=== PATIENT | female | born 1935 ===

== ENCOUNTER 2022-12-08 07:00 | Emergency (ER) | payer MEDICARE, OTHER, SELFPAY ==
[2022-12-08] VITALS (19 sets, daily range): BP systolic 136–152; BP diastolic 63–75; PULSE 60–67; RESP 14–28; TEMP 36.3; O2SAT 91–100; BMI 20.5
--- NOTE | 2022-12-08 07:14 | DI.RAD.S_ITS ---
PROCEDURE: XR CHEST 1V INDICATIONS: short of breath TECHNIQUE: One view of the chest was acquired. COMPARISON: None. FINDINGS: Surgical changes and devices: Pacemaker. Lungs and pleura: Mild increased vascularity.. No pleural effusions or pneumothorax. Mediastinum: Mediastinal contours appear normal. Heart size is heart is enlarged. Bones and chest wall: No suspicious bony lesions. Overlying soft tissues appear unremarkable. IMPRESSION: Cardiomegaly with mild increased vascularity suggestive of edema. Dictated by: Saba Khan M.D. on 12/08/2022 at 8:05 Approved by: Saba Khan M.D. on 12/08/2022 at 8:06
[2022-12-08 07:36] LABS: Add Manual Diff / Slide Review NO; Basophils Absolute Auto 100 /uL (0-100); Basophils Percent Auto 0.8 % (0-2); Eosinophils Absolute Auto 200 /uL (0-450); Eosinophils Percent Auto 2.7 % (2-4); Hematocrit 36.2 % (36-46); Hemoglobin 11.8 g/dL (12.0-16.0); Lymphocytes Absolute Auto 800 /uL (1100-4500); Lymphocytes Percent Auto 9.6 % (25-40); Mean Corpuscular HGB Conc 32.7 % (30-36); Mean Corpuscular Hemoglobin 29.2 PG (26-34); Mean Corpuscular Volume 89.3 fL (80-100); Monocytes Absolute Auto 800 /uL (0-900); Monocytes Percent Auto 9.2 % (3-14); Neutrophils Absolute Auto 6800 /uL (1500-7000); Neutrophils Percent Auto 77.7 % (50-75); Platelet Count 318 X10^3/uL (150-400); Red Blood Cell Count 4.06 X10^6/uL (4.0-5.2); Red Cell Distribution Width 20.2 % (11.6-14.8); White Blood Cell Count 8.8 X10^3/uL (4.5-11.0)
[2022-12-08 07:37] LABS: INR 1.1 (0.9-1.3); Prothrombin Time 12.6 SECONDS (10.1-12.7)
[2022-12-08 07:40] LABS: Lactate (Lactic Acid) 1.6 mmol/L (0.7-2.1); PTT Partial Thromboplastin Tim 33 SECONDS (26-36)
[2022-12-08 07:41] LABS: Alanine Aminotransferase 23 IU/L (<35); Albumin 3.5 g/dL (3.5-5.0); Albumin Globulin Ratio 1.1 (1.0-2.8); Alkaline Phosphatase 82 U/L (38-126); Aspartate Aminotransferase 36 IU/L (14-36); Bilirubin Total 0.8 mg/dL (0.2-1.3); Blood Urea Nitrogen 30 mg/dL (7-17); Calcium 9.2 mg/dL (8.4-10.2); Carbon Dioxide 29 mmol/L (22-32); Chloride 104 mmol/L (98-107); Creatine Kinase 60 U/L (30-135); Estimated Glomerular Filt Rate > 60 mL/min (>60); Globulin 3.2 g/dL (1.7-4.1); Glucose 130 mg/dL (80-110); HEMOLYSIS 50 (0-50); Lipase 101 U/L (23-300); Potassium 4.2 mmol/L (3.4-5.1); Sodium 140 mmol/L (137-145); Total Protein 6.7 g/dL (6.3-8.2)
[2022-12-08 07:50] LABS: NT-proBNP (BNP-Adult 18+) 12300 pg/mL (<450)
[2022-12-08 07:53] LABS: Troponin I 0.028 ng/mL (0.01-0.034)
--- NOTE | 2022-12-08 08:00 | ED.SOB ---
HPI - SOB/Dyspnea General Chief Complaint: Shortness of Breath/Dyspnea Stated Complaint: SOB. Time Seen by Provider: 12/08/22 07:14 Source: patient and EMS Mode of arrival: EMS Limitations: no limitations History of Present Illness HPI Narrative: Patient is an 87-year-old female with history of pacemaker congestive heart failure, presents today with increasing shortness of breath. It sounds like primary increase Lasix to 2 tablets once a day and then she was back down to 1 once daily. She also has chronic pain in her hip and is taking oxycodone. She took oxycodone yesterday and slept for most of the day. Daughter came to check on her this morning noticed that she was having some difficulty breathing. EMS arrived she was never hypoxic but did sound audibly course. They are able to culture she does not require oxygen she is awake alert oriented. She denies any chest pain. She feels like she is a chronic cough from postnasal drip cough does not seem any worse today. She denies any fever. Denies abdominal pain nausea or vomiting. She does have some mild lower extremity edema. Visiting here from out of town. Niece at bedside she reports that for the last 2 days she is really been unable to get out of bed due to increasing pain in her right hip. She is seen in follow-up by Orthopedics at [facility] in [place]. She reports that she is supposed to have hip revision December 18 for failing hardware. She is been doing okay until the last 2 days when the pain has gotten significantly worse so much so that she can not get up. She denies any fever. Related Data Allergies Allergy/AdvReac Type Severity Reaction Status Date / Time ibuprofen AdvReac Was told Verified 12/08/22 08:55 not to take Review of Systems Review of Systems ROS Unobtainable: All systems reviewed & are unremarkable except as noted in HPI and below Exam Initial Vital Signs Initial Vital Signs: Vital Signs Temperature 97.3 F L 12/08/22 07:05 Pulse Rate 63 12/08/22 07:05 Respiratory Rate 26 H 12/08/22 07:05 Blood Pressure 145/70 H 12/08/22 07:05 Pulse Oximetry 95 12/08/22 07:05 Oxygen Delivery Method Room Air 12/08/22 07:05 GENERAL: Alert 87-year-old female HEENT: Head atraumatic,EOMI, pupils reactive, face symmetric, moist mucous membranesathy] CARDIOVASCULAR: Regular rate and rhythm without murmurs, rubs or gallops. RESPIRATORY: Breath sounds equal bilaterally, no wheezes rales or rhonchi. No tachypnea no obvious conversational dyspnea minimal coarseness in bases ABDOMEN: Soft, nontender. Normoactive bowel sounds all 4 quadrants. No guarding or rebound. EXTREMITIES: Normal range of motion, no clubbing or edema. Neurovascularly intact. NEUROLOGICAL: Alert and oriented x4.Normal gait and speech. SKIN: Warm, dry, no laceration, no petechiae, no rashes or lesions. Course Orders Ordered: ED Orders 12/08/22 10:19 XR hip w pel if done RT 2V Stat Discontinued Medications Acetaminophen (Acetaminophen 325 Mg Tablet) 975 mg PO NOW ONE Stop: 12/08/22 15:56 Last Admin: 12/08/22 16:01 Dose: 975 mg Documented By: MICKY Furosemide 60 mg/ Sodium (Chloride) 56 mls @ 112 mls/hr IV NOW ONE Stop: 12/08/22 08:09 Last Infusion: 12/08/22 09:46 Dose: Infused Documented By: Admin: 12/08/22 09:02 Dose: 112 mls/hr Documented By: CARLOS Vital Signs Vital signs: Vital Signs - 8 hr 12/08/22 10:30 12/08/22 10:30 12/08/22 11:00 Pulse Rate 60 60 Respiratory Rate 21 23 Blood Pressure 144/70 H Pulse Oximetry 97 100 Oxygen Delivery Method Nasal Cannula Nasal Cannula Oxygen Flow Rate 2 2 12/08/22 11:00 12/08/22 11:30 12/08/22 11:30 Pulse Rate 61 Respiratory Rate 26 H Blood Pressure 147/73 H 138/72 Pulse Oximetry 99 Oxygen Delivery Method Nasal Cannula Oxygen Flow Rate 2 12/08/22 12:00 12/08/22 12:00 12/08/22 12:30 Pulse Rate 60 Respiratory Rate 20 Blood Pressure 151/70 H 143/69 H Pulse Oximetry 99 Oxygen Delivery Method Nasal Cannula Oxygen Flow Rate 2 12/08/22 12:30 12/08/22 13:00 12/08/22 13:00 Pulse Rate 60 63 Respiratory Rate 24 28 H Blood Pressure 152/75 H Pulse Oximetry 99 99 Oxygen Delivery Method Nasal Cannula Nasal Cannula Oxygen Flow Rate 2 2 12/08/22 13:30 12/08/22 13:30 12/08/22 14:00 Pulse Rate 60 60 Respiratory Rate 14 24 Blood Pressure 141/67 H Pulse Oximetry 99 97 Oxygen Delivery Method Nasal Cannula Oxygen Flow Rate 2 12/08/22 14:00 12/08/22 14:30 12/08/22 14:30 Pulse Rate 61 Respiratory Rate 25 H Blood Pressure 145/70 H 148/66 H Pulse Oximetry 98 Oxygen Delivery Method Oxygen Flow Rate 12/08/22 15:00 12/08/22 15:00 12/08/22 15:30 Pulse Rate 67 63 Respiratory Rate 23 26 H Blood Pressure 149/74 H Pulse Oximetry 97 97 Oxygen Delivery Method Nasal Cannula Oxygen Flow Rate 1 12/08/22 15:30 12/08/22 16:00 12/08/22 16:00 Pulse Rate 65 Respiratory Rate 24 Blood Pressure 136/63 139/64 Pulse Oximetry 97 Oxygen Delivery Method Nasal Cannula Oxygen Flow Rate 2 MDM - SOB/Dyspnea Lab Data 12/08/22 07:20 12/08/22 07:20 Labs: Lab Results 12/08/22 Range/Units 07:20 WBC 8.8 (4.5-11.0) X10^3/uL RBC 4.06 (4.0-5.2) X10^6/uL Hgb 11.8 L (12.0-16.0) g/dL Hct 36.2 (36-46) % MCV 89.3 (80-100) fL MCH 29.2 (26-34) PG MCHC 32.7 (30-36) % RDW 20.2 H (11.6-14.8) % Plt Count 318 (150-400) X10^3/uL Neut % (Auto) 77.7 H (50-75) % Lymph % (Auto) 9.6 L (25-40) % [place] % (Auto) 9.2 (3-14) % Eos % (Auto) 2.7 (2-4) % Baso % (Auto) 0.8 (0-2) % Neut # (Auto) 6800 (2272-2561) /uL Lymph # (Auto) 800 L (4704-1738) /uL [place] # (Auto) 800 (0-900) /uL Eos # (Auto) 200 (0-450) /uL Baso # (Auto) 100 (0-100) /uL RBC Morphology See below Anisocytosis 2+ H PT 12.6 (10.1-12.7) SECONDS INR 1.1 (0.9-1.3) APTT 33 (26-36) SECONDS Sodium 140 (137-145) mmol/L Potassium 4.2 (3.4-5.1) mmol/L Chloride 104 (98-107) mmol/L Carbon Dioxide 29 (22-32) mmol/L BUN 30 H (7-17) mg/dL Creatinine 0.79 (0.52-1.04) mg/dL Estimated GFR > 60 (>60) mL/min BUN/Creatinine Ratio 38.0 H (6-22) Glucose 130 H (80-110) mg/dL Lactate 1.6 (0.7-2.1) mmol/L Calcium 9.2 (8.4-10.2) mg/dL Total Bilirubin 0.8 (0.2-1.3) mg/dL AST 36 (14-36) IU/L ALT 23 (<35) IU/L Alkaline Phosphatase 82 (38-126) U/L Total Creatine Kinase 60 (30-135) U/L Troponin I 0.028 (0.01-0.034) ng/mL NT-Pro-B Natriuret Pep 43275 H (<450) pg/mL Total Protein 6.7 (6.3-8.2) g/dL Albumin 3.5 (3.5-5.0) g/dL Globulin 3.2 (1.7-4.1) g/dL Albumin/Globulin Ratio 1.1 (1.0-2.8) Lipase 101 (23-300) U/L SARS-CoV-2 (PCR) Negative (Negative) Influenza A (RT-PCR) Flu a negative (NEGATIVE) Influenza B (RT-PCR) Flu b negative (NEGATIVE) RSV (PCR) Negative (Negative) Imaging Data Chest x-ray: Radiologist's Impression: PROCEDURE: XR CHEST 1V INDICATIONS: short of breath TECHNIQUE: One view of the chest was acquired. COMPARISON: None. FINDINGS: Surgical changes and devices: Pacemaker. Lungs and pleura: Mild increased vascularity.. No pleural effusions or pneumothorax. Mediastinum: Mediastinal contours appear normal. Heart size is heart is enlarged. Bones and chest wall: No suspicious bony lesions. Overlying soft tissues appear unremarkable. IMPRESSION: Cardiomegaly with mild increased vascularity suggestive of edema. Dictated by: Saba Khan M.D. on 12/08/2022 at 8:05 Extremity x-ray #1: Radiologist's Impression: PROCEDURE: XR HIP W PEL IF DONE RT 2V INDICATIONS: pain failing hardware TECHNIQUE: 3 views of the hip were acquired. COMPARISON: None. FINDINGS: Bones: Right femoral neck compression screw has eroded superiorly through the femoral head, and shows pressure erosion of the superior acetabulum. Left femoral nail and compression screw in appropriate position. Old healed right superior inferior pubic rami fractures present. Soft tissues: Small vessel atherosclerotic vascular calcification IMPRESSION: Migrating right femoral neck compression screw with superior erosion of femoral head and adjacent acetabulum Approved by: Luis Armando Gamble M.D. on 12/08/2022 at 10:22 ECG Data Interpretation: Dual paced rhythm rate 59 MDM Narrative Medical decision making narrative: Patient 87-year-old male history of congestive heart failure pacemaker presents today with increasing right hip pain unable to ambulate increasing shortness of breath and difficulty breathing. He is requiring about 1 L of O2. Labs: WBC 8.8 hemoglobin 11.8, electrolytes within normal limits BUN 30 creatinine 0.7, BNP 01996 troponin 0.08 Patient 87-year-old history of congestive heart failure presents with increasing shortness of breath and swelling. Her Lasix was already increase this weeks to 40 mg once daily and then she went down to 20 mg. She is a difficult time ambulating secondary to chronic ongoing hip pain and failing hardware. Unable to get up and use the restroom as needed difficult to have increased dose of Lasix. She is found to have congestive heart failure she has elevated BNP increased work of breathing and vascular congestion on x-ray. She is given a dose of Lasix in the ED which has helped. Right hip is tender it is non erythematous it is afebrile no sign of infection. X-ray confirms failing hardware. Patient needs surgery to be sooner than December 18 she also needs admission to the hospital with congestive heart failure. 13:15-Dr. D[facility] orthopedics, is aware of patient definitely needs hip revision would love to have patient be transferred to [facility] surgery could be moved up to December 10. Recommends admitting to hospitalist. Dr. Gibbs, hospitalist at [facility], updated patient's symptoms test results, kindly accepts patient. She has put out 1600cc urine with 60mg lasix. Discharge Plan Departure Patient Disposition: [facility]
[2022-12-08 08:04] LABS: Anisocytosis 2+
[2022-12-08] MEDS: FUROSEMIDE 60 MG in SODIUM CHLORIDE 0.9% 50 ML 112 MG IV (09:02)
--- NOTE | 2022-12-08 10:19 | DI.RAD.S_ITS ---
PROCEDURE: XR HIP W PEL IF DONE RT 2V INDICATIONS: pain failing hardware TECHNIQUE: 3 views of the hip were acquired. COMPARISON: None. FINDINGS: Bones: Right femoral neck compression screw has eroded superiorly through the femoral head, and shows pressure erosion of the superior acetabulum. Left femoral nail and compression screw in appropriate position. Old healed right superior inferior pubic rami fractures present. Soft tissues: Small vessel atherosclerotic vascular calcification IMPRESSION: Migrating right femoral neck compression screw with superior erosion of femoral head and adjacent acetabulum Approved by: Luis Armando Gamble M.D. on 12/08/2022 at 10:22
[2022-12-08 11:49] LABS: Influenza A - CEPHEID Flu A NEGATIVE (NEGATIVE); Influenza B - CEPHEID Flu B NEGATIVE (NEGATIVE); Respiratory Syncytial Virus Negative (Negative)
[2022-12-08 12:25] LABS: COVID-19 CEPHEID 4-PLEX PCR Negative (Negative)
[2022-12-08] MEDS: ACETAMINOPHEN 325 MG TABLET 975 MG PO (16:01)
== END 2022-12-08 16:40 | disposition short-term general hospital (02) ==
PROVIDERS: Emergency Provider Emergency Medicine
DX: I50.9 Heart failure, unspecified (principal); Z79.01 Long term (current) use of anticoagulants; Z20.822 Contact with and (suspected) exposure to COVID-19; Z95.0 Presence of cardiac pacemaker
CPT/HCPCS: 0241U; 36415; 71045; 73502; 80053; 82550; 83605; 83690; 83880; 84484; 85025; 85610; 85730; 93005; 93010; 96365; 99284; 99285; J1940